=== PATIENT | male | born 1975 | race Caucasian/White ===

== ENCOUNTER → 2024-08-16 | Outpatient (CLI) | payer BC, SELFPAY ==
[2024-08-16 09:15] LABS: Basophils % (Auto) 1 % (0-2.5); Eosinophils # (Auto) 0.3 Thou/mm3 (0.0-0.5); Eosinophils % (Auto) 4 % (0-10); Hematocrit 43.1 % (41.0-53.0); Hemoglobin 15.8 g/dL (13.5-16.0); Immature Granulocytes % (Auto) 0 % (0-0); Immature Granulocytes Auto 0.02 Thou/mm3 (0.00-0.00); Lymphocytes % (Auto) 32 % (10-50); Mean Corpuscular HGB Conc 36.7 g/dl (31.0-37.0); Mean Corpuscular Hemoglobin 31.4 pg (25.0-35.0); Mean Corpuscular Volume 86 fL (80-100); Monocytes # (Auto) 0.7 Thou/mm3 (0.0-0.8); Monocytes % (Auto) 11 % (0-12); Neutrophils # (Auto) 3.2 Thou/mm3 (1.8-7.7); Neutrophils % (Auto) 51 % (37-80); Nucleated Red Blood Cell % 0 /100 WBC (0); Platelet Count 251 Thou/mm3 (140-440); RDW Standard Deviation 38.1 fL (35.1-43.9); Red Blood Count 5.03 Miln/mm3 (4.50-5.90); White Blood Count 6.1 Thou/mm3 (3.8-10.6)
[2024-08-16 09:43] LABS: Prostate Specific Antigen 1.87 ng/mL (0-4.00)
[2024-08-16 09:44] LABS: Alanine Aminotransferase 33 U/L (10-49); Albumin, Serum 4.4 gm/dL (3.5-5.0); Albumin/Globulin Ratio 1.6 (1.2-2.2); Alkaline Phosphatase 65 U/L (46-116); Anion Gap 8 (7-16); Aspartate Amino Transferase 29 U/L (0-34); BUN/Creatinine Ratio 9 Ratio (12-20); Bilirubin,Total 0.8 mg/dL (0.3-1.2); Blood Urea Nitrogen 11 mg/dL (9-23); Calcium 9.5 mg/dL (8.3-10.6); Calcium (Corrected) 9.5 mg/dL (8.5-10.1); Carbon Dioxide 29.7 mMol/L (20.0-31.0); Cardiac Risk Estimate 4.3 RATIO (4.0-6.7); Chloride 103 mMol/L (98-107); Cholesterol 166 mg/dL (132-200); Creatinine (Component) 1.2 mg/dL (0.6-1.3); Free T4 (Free Thyroxine) 1.33 ng/dL (0.89-1.76); Globulin 2.7 gm/dL (2.3-3.5); Glucose 104 mg/dL (74-106); HDL Cholesterol 39 mg/dL (40-60); LDL Cholesterol,Calculated 100 mg/dL (0-130); Osmolality,Calculated 280 (275-295); Potassium 4.5 mMol/L (3.4-5.1); Sodium 141 mMol/L (136-145); Thyroid Stimulating Hormone 2.08 uIU/mL (0.55-4.78); Total Protein 7.1 gm/dL (5.7-8.2); Triglycerides 134 mg/dL (30-150); eGFR > 60 See Note
[2024-08-16 09:47] LABS: Vitamin D 25 Hydroxy Total 37.1 ng/mL (7.3-40.2)
[2024-08-16 09:52] LABS: Glucose Estimated Average 108 mg/dL (80-131); Hemoglobin A1C 5.4 % Hgb (4.8-6.0)
[2024-08-16 10:02] LABS: Collection Type, Urine Clean Catch
[2024-08-16 11:48] LABS: Bilirubin,Urine Negative (Negative); Blood,Urine Negative (Negative); Clarity,Urine Clear (Clear/Hazy); Color,Urine Colorless (Lt Yel-Yel); Culture Indicated,Urine Not Indicated; Glucose, Urine Negative (Negative); Ketones,Urine Negative (Negative); Leukocyte Esterase,Urine Negative (Negative); Nitrite,Urine Negative (Negative); Protein,Urine Negative (Neg - Trace); RBC,Urine 1 /hpf (0-3); Squamous Epithelial Cell,Urine < 1 /hpf (0-5); Urobilinogen,Urine Negative mg/dL (0.0-1.0); WBC,Urine 1 /hpf (0-5)
== END | disposition home or self-care (01) ==
LOC: COPL 08:45
PROVIDERS: PCP Internal Medicine; Referring Provider Internal Medicine; Visit Provider Internal Medicine
DX: Z00.00 Encounter for general adult medical examination without abnormal findings (principal); N40.1 Benign prostatic hyperplasia with lower urinary tract symptoms; E55.9 Vitamin D deficiency, unspecified
CPT/HCPCS: 36415; 80053; 80061; 81001; 82306; 83036; 84153; 84439; 84443; 85025

== ENCOUNTER → 2024-08-17 | Outpatient (CLI) | payer BC, SELFPAY ==
--- NOTE | 2024-08-17 10:15 | XR_ITS ---
Examination: Testicular sonography complete TECHNIQUE: Grayscale sonographic images testes, assessment arterial inflow venous outflow Doppler spectral analysis carful analysis Date and time: August 17, 2024 1037 hours, comparison July 24, 2012 INDICATIONS: Onset testicular pain beginning one month ago. FINDINGS: Right testis 5.5 cm epididymis 12 mm Arterial flow testicle. No testicular mass Left testis 4.8 cm epididymis 16mm Arterial flow testicle. No testicular mass Minimal left hydrocele IMPRESSION: No testicular torsion or testicular mass Left epididymitis
== END | disposition home or self-care (01) ==
PROVIDERS: PCP Internal Medicine; Referring Provider Internal Medicine; Visit Provider Internal Medicine
DX: N45.1 Epididymitis (principal)
CPT/HCPCS: 76870